=== PATIENT | female | born 1955 | race Caucasian/White ===

== ENCOUNTER 2024-03-12 04:27 | Day surgery (SDC) | payer OTHER ==
[2024-03-09 12:16] VITALS: BMI 26.2
[2024-03-12] MEDS ORDERED: oxyCODONE HCL 5 MG TABLET ONE (12:40)
[2024-03-12] MEDS: oxyCODONE HCL 5 MG TABLET PO ONE (12:45)
[2024-03-12] MEDS ORDERED: MIDAZOLAM HCL 2 MG/2 ML SINGLE DOSE VIAL ONE (14:42)
[2024-03-12] MEDS ORDERED: PROPOFOL 20 ML ONE (14:42)
[2024-03-12 16:02] VITALS: PULSE 68; RESP 20
[2024-03-12 16:20] VITALS: BP 109/62; TEMP 97.3
== END 2024-03-12 16:10 | disposition home or self-care (01) ==
LOC: JASU-SURG 04:27
PROVIDERS: ATTEND Urology
PROC: 0TF3XZZ Fragmentation in Right Kidney Pelvis, External Approach (ICD-10-PCS; principal; 2024-03-12 14:30)
DX: N20.0 Calculus of kidney (principal)